=== PATIENT | female | born 1970 | race Caucasian/White ===

== ENCOUNTER 2016-12-14 09:20 | Emergency (ER) | payer OTHER ==
[~2016-12-14] VITALS: Ht 170.2 cm; Wt 64.9 kg
[2016-12-14 09:20] VITALS: BP_SYST 124
[2016-12-14] MEDS ORDERED: PROCHLORPERAZINE EDISYLATE 10 MG/2 ML VIAL IM ONE (10:00)
[2016-12-14] MEDS ORDERED: ACETAMINOPHEN 500 MG TABLET PO ONE (10:00)
[2016-12-14] MEDS ORDERED: KETOROLAC TROMETHAMINE 60 MG/2 ML VIAL IM ONE (11:30)
[2016-12-14 12:07] VITALS: BP_SYST 122
== END 2016-12-14 12:07 | disposition home or self-care (01) ==
LOC: SED 09:20
DX: S40.211A Abrasion of right shoulder, initial encounter (principal); S70.311A Abrasion, right thigh, initial encounter; S80.811A Abrasion, right lower leg, initial encounter; S40.811A Abrasion of right upper arm, initial encounter; R51 Headache; M54.2 Cervicalgia; V87.8XXA Person injured in other specified noncollision transport accidents involving motor vehicle (traffic), initial encounter; Y93.I9 Activity, other involving external motion; Y92.89 Other specified places as the place of occurrence of the external cause; Y99.8 Other external cause status; Z88.0 Allergy status to penicillin
CPT/HCPCS: 70450; 72125; 96372; 99284; J0780; J1885